=== PATIENT | female | born 1995 | race Caucasian/White ===

== ENCOUNTER 2017-07-18 13:31 | Emergency (ER) | payer BC ==
--- NOTE | 2017-07-18 14:11 | EDM.PDOC ---
ED HPI GENERAL MEDICAL PROBLEM - General Chief Complaint: Lower Extremity Injury/Pain Stated Complaint: LEFT FOOT PAIN Time Seen by Provider: 07/18/17 14:10 Source of Information: Reports: Patient History Limitations: Reports: No Limitations - History of Present Illness INITIAL COMMENTS - FREE TEXT/NARRATIVE: HISTORY AND PHYSICAL: []22-year-old female presents with injury to her left foot History of Present Illness: []Horse stepped on her foot this morning She has NuvaRing for control Review of Systems: As per history of present illness and below otherwise all systems reviewed and negative. Past medical history: As per history of present illness and as reviewed below otherwise noncontributory. Surgical history: As per history of present illness and as reviewed below otherwise noncontributory. Social history: No reported history of drug or alcohol abuse. Family history: As per history of present illness and as reviewed below otherwise noncontributory. Physical exam: HEENT: Atraumatic, normocehpalic, pupils reactive, negative for conjunctival pallor or scleral icterus, mucous membranes moist, throat clear, neck supple, nontender, trachea midline. Lungs: Clear to auscultation, breath sounds equal bilaterally, chest non tender. Heart: S1S2, regular, negative for clicks, rubs, or JVD. Abdomen: Soft, nondistended, nontender. Negative for masses or hepatossplenmegaly. Negative for costovertebral tenderness. Pelvis: Stable nontender. Genitourinary: Deferred. Rectal: Deferred Extremities: Ecchymosis extending over the lateral portion of her left foot , edema, negative for cords or calf pain. Neurovascular unremarkable. Neuro: Awake, alert, oriented. Cranial nerves II through XII unremarkable. Cerebellum unremarkable. Motor and sensory unremarkable throughout. Exam nonfocal. Diagnostics: [xray] Therapeutics: [] Impression: [] Plan: [] Definitive disposition and diagnosis as appropriate pending reevaluation and review of above. Onset: Today, Sudden Left Feet Pain Score (Numeric/FACES): 7 - Related Data Allergies Allergy/AdvReac Type Severity Reaction Status Date / Time No Known Allergies Allergy Verified 07/18/17 13:54 Home Meds: Home Meds Non-Formulary Medication [NF Drug] 1 applic VAG DAILY 07/18/17 [History] Past Medical History - Past Health History Medical/Surgical History: Denies Medical/Surgical History Social & Family History - Family History Family Medical History: Noncontributory - Tobacco Use Smoking Status *Q: Never Smoker - Caffeine Use Caffeine Use: Reports: Soda, Tea - Recreational Drug Use Recreational Drug Use: No Review of Systems - Review of Systems Review Of Systems: ROS reveals no pertinent complaints other than HPI. ED EXAM, GENERAL - Physical Exam Exam: See Below (see dictation) Course - Vital Signs Last Recorded V/S: Last Vital Signs Temp 36.9 C 07/18/17 13:49 Pulse 69 07/18/17 13:49 Resp 20 07/18/17 13:49 BP 105/60 07/18/17 13:49 Pulse Ox 98 07/18/17 13:49 - Orders/Labs/Meds Orders: Active Orders 24 hr Category Date Time Status Splinting [RC] ASDIRECTED Care 07/18/17 15:30 Ordered Foot 2V Lt [CR] Stat Exams 07/18/17 14:07 Taken Labs: Laboratory Tests 07/18/17 Range/Units 14:15 Urine HCG, Qual NEGATIVE (NEGATIVE) Departure - Departure Time of Disposition: 15:32 Disposition: Home, Self-Care 01 Condition: Good Clinical Impression: Injury of left foot Qualifiers: Encounter type: initial encounter Qualified Code(s): S99.922A - Unspecified injury of left foot, initial encounter - Discharge Information Instructions: Crush Injury, Fingers or Toes, [id number] Referrals: Beba Romo DO [Primary Care Provider] - Forms: ED Department Discharge Additional Instructions: The following information is given to patients seen in the emergency department who are being discharged to home. This information is to outline your options for follow-up care. We provide all patients seen in our emergency department with a follow-up referral. The need for follow-up, as well as the timing and circumstances, are variable depending upon the specifics of your emergency department visit. If you don't have a primary care physician on staff, we will provide you with a referral. We always advise you to contact your personal physician following an emergency department visit to inform them of the circumstance of the visit and for follow-up with them and/or the need for any referrals to a consulting specialist. The emergency department will also refer you to a specialist when appropriate. This referral assures that you have the opportunity for followup care with a specialist. All of these measure are taken in an effort to provide you with optimal care, which includes your followup. Under all circumstances we always encourage you to contact your private physician who remains a resource for coordinating your care. When calling for followup care, please make the office aware that this follow-up is from your recent emergency room visit. If for any reason you are refused follow-up, please contact the [facility] emergency department at and asked to speak to the emergency department charge nurse. A walker but has been placed on your foot to help you with walking Ibuprofen or Aleve for discomfort as directed on the bottle Follow-up with the information receptionist that you have an appointment with - My Orders Last 24 Hours: My Active Orders 07/18/17 14:07 Foot 2V Lt [CR] Stat 07/18/17 15:30 Splinting [RC] ASDIRECTED - Assessment/Plan Last 24 Hours: My Active Orders 07/18/17 14:07 Foot 2V Lt [CR] Stat 07/18/17 15:30 Splinting [RC] ASDIRECTED
[2017-07-18 15:49] VITALS: BP 119/63
--- NOTE | 2017-07-21 11:34 | CR ---
EXAM DATE: 07/18/17 PATIENT'S AGE: 22 Patient: ISAIAH LAGUERRE Facility: [place], [place] Site . Site : 1995 Study: XRay Extremity Left foot [id number]/29/2017 2:42:02 PM Ordering Physician: Doctor Ulrich Final Report: HISTORY: Pain. FINDINGS: Two views of the left foot demonstrates normal bone mineralization. There is a 3 mm calcific density seen adjacent to the cuboid on the lateral radiograph. It is not apparent on the AP image. No donor site is seen. No acute fracture line or dislocation. IMPRESSION: 3 mm calcification seen adjacent to the cuboid bone on lateral radiograph. This is nonspecific in appearance. Dictated by Fely Massey MD @ 07/18/2017 3:01:17 PM Dictated by: Fely Massey MD @ 07/18/2017 15:01:24 (Electronic Signature) Report Signed by Proxy. MARYJO
== END 2017-07-18 15:47 | disposition home or self-care (01) ==
LOC: MW.ED 13:31
DX: S90.32XA Contusion of left foot, initial encounter (principal); W18.41XA Slipping, tripping and stumbling without falling due to stepping on object, initial encounter
CPT/HCPCS: 73620-26-LT; 73620-LT; 81025; 99282; 99283